=== PATIENT | male | born 1945 | race Caucasian/White ===

== ENCOUNTER 2017-02-06 04:58 | Inpatient (IN) ==
[2017-02-06] MEDS ORDERED: ASPIRIN 325 MG TABLET PO STA (05:24)
[2017-02-06] MEDS ORDERED: ONDANSETRON 4 MG/2 ML VIAL IV STA (05:24)
[2017-02-06] MEDS ORDERED: MORPHINE 2 MG/1 ML SYRINGE IV STA (05:24)
[2017-02-06] MEDS ORDERED: ASPIRIN 325 MG TABLET ONE (05:39)
[2017-02-06] MEDS ORDERED: MORPHINE 2 MG/1 ML SYRINGE ONE (05:39)
[2017-02-06] MEDS ORDERED: ONDANSETRON 4 MG/2 ML VIAL ONE (05:39)
[2017-02-06 06:23] LABS: Basophils # 0.1 10*3/uL (0.0-0.2); Basophils % 0.7 % (0.0-0.8); Eosinophils # 0.2 10*3/uL (0.0-0.87); Eosinophils % 3.1 % (0.00-10.9); Hematocrit 42.8 VOL% (42.0-52.0); Hemoglobin 15.4 GM/DL (14.0-18.0); Immature Granulocytes % 0.6 %; Immature Granulocytes Absolute 0.04 #; Lymphocytes # 2.2 10*3/uL (1.4-4.0); Lymphocytes % 31.7 % (21.2-54.2); Mean Corpuscular Hemoglobin 34 PG (27-34); Mean Corpuscular Volume 94.5 FL (87-102); Mean Platelet Volume 11.4 FL (9.6-12.0); Monocytes # 0.7 10*3/uL (0.11-0.8); Monocytes % 10.2 % (1.7-12.7); Neutrophils # 3.7 10*3/uL (1.4-7.4); Neutrophils % 53.7 % (38.7-73.9); Platelet Count 121 T/CUMM (130-400); Red Blood Count 4.53 MC/CUMM (3.8-5.5); Red Cell Distribution Width 12.2 % (9.3-17.3); White Blood Count 6.8 T/CUMM (4-12)
[2017-02-06 06:29] LABS: Albumin 3.6 G/DL (3.4-5.0); Bilirubin,Total 0.5 MG/DL (0.2-1.0); Calcium 8.8 MG/DL (8.5-10.1); Magnesium 1.8 MG/DL (1.8-2.4); Osmolality,Calculated 278.5 MOS/KG (273-304); Potassium 4.2 MMOL/L (3.5-5.1); Total Protein 6.3 G/DL (6.4-8.3)
[2017-02-06] MEDS ORDERED: NITROGLYCERIN SL 0.4 MG TABLET SL PRN (06:42)
[2017-02-06] MEDS ORDERED: NITROGLYCERIN SL 0.4 MG TABLET SL ONE ×2 (06:53→07:05)
[2017-02-06] MEDS ORDERED: ALUM/MAG/SIMETH/LIDO VISC 1:1 30 ML BOTTLE PO STA (07:38)
[2017-02-06] MEDS ORDERED: ALUM/MAG/SIMETH/LIDO VISC 1:1 30 ML BOTTLE PO ONE (07:42)
[2017-02-06] MEDS ORDERED: ACETAMINOPHEN 325 MG TABLET PO PRN (08:37)
[2017-02-06] MEDS ORDERED: ZALEPLON 5 MG CAPSULE PO PRN (08:37)
[2017-02-06 09:05] LABS: Risk Ratio 6.3; VLDL CHOLESTEROL 47.6 MG/DL
[2017-02-06] MEDS: ASPIRIN EC 81 MG TABLET PO SCH (09:15)
[2017-02-06] MEDS: LOSARTAN 50 MG TABLET PO SCH (12:40)
[2017-02-06] MEDS ORDERED: MULTIVITAMIN (CENTRUM) TABLET PO SCH (21:00)
[2017-02-06] MEDS: KETOROLAC 30 MG/1 ML VIAL IV SCH (21:34)
[2017-02-06] MEDS: OMEGA 3 ACID ETHYL ESTERS 1 GM CAPSULE PO SCH (21:34)
[2017-02-06] MEDS: METOPROLOL TARTRATE 50 MG TABLET PO SCH (21:34)
[2017-02-07] MEDS: KETOROLAC 30 MG/1 ML VIAL IV SCH ×3 (01:04→13:56)
[2017-02-07] MEDS ORDERED: ALLOPURINOL 100 MG TABLET PO SCH (09:00)
[2017-02-07] MEDS: ASPIRIN EC 81 MG TABLET PO SCH (09:17)
[2017-02-07] MEDS: OMEGA 3 ACID ETHYL ESTERS 1 GM CAPSULE PO SCH (09:18)
[2017-02-07] MEDS: METOPROLOL TARTRATE 50 MG TABLET PO SCH (09:18)
[2017-02-07 13:12] VITALS: BP 134/62
[2017-02-07] MEDS: LOSARTAN 50 MG TABLET PO SCH (13:26)
[2017-02-07] MEDS ORDERED: KETOROLAC 10 MG TABLET PO SCH (18:00)
== END 2017-02-07 14:00 | disposition home or self-care (01) | DRG 313 ==
LOC: N.ED 04:58 → N.EDINP 08:35 → N.TELEN 15:10
PROVIDERS: ADMIT Hospitalist; ATTEND Hospitalist

== ENCOUNTER 2017-02-10 15:19 | Observation (INO) ==
[2017-02-10] MEDS ORDERED: NITROGLYCERIN 2% OINT 1 INCH/GM PACK TOP STA (15:43)
[2017-02-10] MEDS ORDERED: ENOXAPARIN 100 MG/ML SYRINGE SUBCUT STA (15:43)
[2017-02-10 15:49] LABS: Basophils % 0.4 % (0.0-0.8); Eosinophils # 0.2 10*3/uL (0.0-0.87); Eosinophils % 2.8 % (0.00-10.9); Hematocrit 40.2 VOL% (42.0-52.0); Hemoglobin 14.4 GM/DL (14.0-18.0); Immature Granulocytes % 0.1 %; Immature Granulocytes Absolute 0.01 #; Lymphocytes # 2.1 10*3/uL (1.4-4.0); Lymphocytes % 31.9 % (21.2-54.2); Mean Corpuscular HGB Conc 35.8 GM/DL (32-36); Mean Corpuscular Hemoglobin 34 PG (27-34); Mean Corpuscular Volume 94.6 FL (87-102); Monocytes # 0.6 10*3/uL (0.11-0.8); Monocytes % 9.4 % (1.7-12.7); Neutrophils # 3.7 10*3/uL (1.4-7.4); Neutrophils % 55.4 % (38.7-73.9); Platelet Count 118 T/CUMM (130-400); Red Blood Count 4.25 MC/CUMM (3.8-5.5); Red Cell Distribution Width 12.1 % (9.3-17.3); White Blood Count 6.7 T/CUMM (4-12)
[2017-02-10] MEDS ORDERED: ENOXAPARIN 100 MG/ML SYRINGE SUBCUT ONE (15:49)
[2017-02-10] MEDS ORDERED: NITROGLYCERIN 2% OINT 1 INCH/GM PACK TOP ONE (15:49)
[2017-02-10 16:21] LABS: Albumin 3.7 G/DL (3.4-5.0); Bilirubin,Total 0.6 MG/DL (0.2-1.0); Calcium 8.8 MG/DL (8.5-10.1); Magnesium 1.9 MG/DL (1.8-2.4); Osmolality,Calculated 278.5 MOS/KG (273-304); Total Protein 6.5 G/DL (6.4-8.3)
[2017-02-10] MEDS ORDERED: ASPIRIN CHEW 81 MG TABLET PO STA (17:26)
[2017-02-10] MEDS ORDERED: POTASSIUM CHLORIDE RIDER 10 MEQ in PREMIX 1 EACH IV PRN ×2 (17:28→21:08)
[2017-02-10] MEDS ORDERED: MAGNESIUM SULF RIDER 2 GM in PREMIX 1 EACH IV PRN ×2 (17:28→19:49)
[2017-02-10] MEDS ORDERED: BISACODYL 5 MG TABLET PO PRN (17:48)
[2017-02-10] MEDS ORDERED: ACETAMINOPHEN 325 MG TABLET PO PRN (17:48)
[2017-02-10] MEDS ORDERED: ONDANSETRON 4 MG/2 ML VIAL IV PRN (17:48)
[2017-02-10] MEDS ORDERED: ZALEPLON 5 MG CAPSULE PO PRN ×2 (17:48→19:49)
[2017-02-10] MEDS ORDERED: guaiFENesin/DM ER 600-30 MG TABLET PO PRN (17:48)
[2017-02-10] MEDS ORDERED: ASPIRIN 325 MG TABLET ONE (18:25)
[2017-02-10 18:29] LABS: INR 0.9; Partial Thromboplastin Time 31.6 SECS (0-40)
[2017-02-10 18:59] LABS: Troponin I Only < 0.015 NG/ML (0.00-0.045)
[2017-02-10] MEDS ORDERED: DOCUSATE SODIUM 100 MG CAPSULE PO PRN (19:49)
[2017-02-10] MEDS ORDERED: NITROGLYCERIN 2% OINT 1 INCH/GM PACK TOP SCH (19:49)
[2017-02-10] MEDS ORDERED: MAGNESIUM SULF RIDER 4 GM in PREMIX 1 EACH IV PRN (19:49)
[2017-02-10] MEDS ORDERED: NITROGLYCERIN SL 0.4 MG TABLET SL PRN (19:49)
[2017-02-10 20:58] LABS: Troponin I Only < 0.015 NG/ML (0.00-0.045)
[2017-02-10] MEDS ORDERED: ATORVASTATIN 40 MG TABLET PO SCH (21:00)
[2017-02-10] MEDS ORDERED: MULTIVITAMIN (CENTRUM) TABLET PO SCH (21:00)
[2017-02-10] MEDS ORDERED: METOPROLOL TARTRATE 25 MG TABLET PO SCH (21:00)
[2017-02-10] MEDS: NITROGLYCERIN 2% OINT 1 INCH/GM PACK TOP SCH (22:03)
[2017-02-10] MEDS: METOPROLOL TARTRATE 50 MG TABLET PO SCH (22:43)
[2017-02-10] MEDS: predniSONE 20 MG TABLET PO SCH (22:44)
[2017-02-10] MEDS: OMEGA 3 ACID ETHYL ESTERS 1 GM CAPSULE PO SCH ×2 (22:44→22:45)
[2017-02-10] MEDS: diphenhydrAMINE CAP 25 MG CAPSULE PO SCH (22:45)
[2017-02-10] MEDS: SODIUM CHLORIDE 0.45% 1,000 ML IV SCH (22:46)
[2017-02-10] MEDS: FAMOTIDINE 20 MG TABLET PO SCH (23:52)
[2017-02-11] MEDS: NITROGLYCERIN 2% OINT 1 INCH/GM PACK TOP SCH ×2 (01:19→07:03)
[2017-02-11] MEDS: diphenhydrAMINE CAP 25 MG CAPSULE PO SCH ×3 (02:08→12:50)
[2017-02-11] MEDS ORDERED: ENOXAPARIN 100 MG/ML SYRINGE SUBCUT SCH (04:00)
[2017-02-11] MEDS ORDERED: diphenhydrAMINE CAP 25 MG CAPSULE PO ONE (06:00)
[2017-02-11] MEDS ORDERED: DIAZEPAM 5 MG TABLET PO ONE (06:00)
[2017-02-11 06:27] LABS: Risk Ratio 6.16; VLDL CHOLESTEROL 53.2 MG/DL
[2017-02-11 06:37] LABS: Magnesium 1.9 MG/DL (1.8-2.4); Osmolality,Calculated 279.5 MOS/KG (273-304); Potassium 5.5 MMOL/L (3.5-5.1)
[2017-02-11 06:50] LABS: Basophils % 0.5 % (0.0-0.8); Eosinophils % 0.7 % (0.00-10.9); Hematocrit 47.9 VOL% (42.0-52.0); Hemoglobin 16.7 GM/DL (14.0-18.0); Immature Granulocytes % 0.7 %; Immature Granulocytes Absolute 0.04 #; Lymphocytes # 1.6 10*3/uL (1.4-4.0); Lymphocytes % 26.4 % (21.2-54.2); Mean Corpuscular HGB Conc 34.9 GM/DL (32-36); Mean Corpuscular Hemoglobin 34 PG (27-34); Mean Corpuscular Volume 97.8 FL (87-102); Monocytes # 0.3 10*3/uL (0.11-0.8); Monocytes % 4.8 % (1.7-12.7); Neutrophils # 4.1 10*3/uL (1.4-7.4); Neutrophils % 66.9 % (38.7-73.9); Platelet Count 96 T/CUMM (130-400); Red Cell Distribution Width 12.1 % (9.3-17.3); White Blood Count 6.1 T/CUMM (4-12)
[2017-02-11] MEDS: SODIUM CHLORIDE 0.45% 1,000 ML IV SCH ×2 (07:03→12:54)
[2017-02-11 07:05] LABS: Giant Platelets Few; Platelet Estimate Decreased
[2017-02-11] MEDS ORDERED: ASPIRIN EC 325 MG TABLET PO SCH (09:00)
[2017-02-11] MEDS ORDERED: PANTOPRAZOLE 40 MG TABLET PO SCH (09:00)
[2017-02-11] MEDS ORDERED: ALLOPURINOL 100 MG TABLET PO SCH ×2 (09:00)
[2017-02-11] MEDS ORDERED: LOSARTAN 50 MG TABLET PO SCH ×2 (09:00→12:00)
[2017-02-11] MEDS ORDERED: ASPIRIN EC 81 MG TABLET PO SCH (09:00)
[2017-02-11] MEDS: FAMOTIDINE 20 MG TABLET PO SCH (09:10)
[2017-02-11] MEDS: predniSONE 20 MG TABLET PO SCH (09:10)
[2017-02-11] MEDS: METOPROLOL TARTRATE 50 MG TABLET PO SCH (09:11)
[2017-02-11] MEDS ORDERED: HEPARIN/NACL 0.9% 2 UNITS/ML 2,000 ML IV ONE (09:51)
[2017-02-11] MEDS ORDERED: MIDAZOLAM 2 MG/2 ML VIAL ONE (09:51)
[2017-02-11] MEDS ORDERED: fentaNYL 100 MCG/2 ML VIAL ONE (09:52)
[2017-02-11] MEDS ORDERED: LIDOCAINE 1%/EPI INJ 20 ML VIAL ONE (09:53)
[2017-02-11] MEDS: OMEGA 3 ACID ETHYL ESTERS 1 GM CAPSULE PO SCH (14:50)
[2017-02-11 16:20] VITALS: BP 154/72
== END 2017-02-11 16:44 | disposition home or self-care (01) ==
LOC: N.EDINP 15:19 → N.ED 15:19 → N.TELES 19:06
PROVIDERS: ADMIT Internal Medicine Cardiovascular Disease; ATTEND Internal Medicine Cardiovascular Disease
PROC: CLCCHCL (ICD-10-PCS; 2017-02-11 10:15)

== ENCOUNTER 2018-05-16 23:04 | Observation (INO) ==
[2018-05-16 23:31] LABS: Basophils # 0.1 10*3/uL (0.0-0.2); Basophils % 0.7 % (0.0-0.8); Eosinophils # 0.2 10*3/uL (0.0-0.87); Eosinophils % 2.4 % (0.00-10.9); Hematocrit 39.7 VOL% (42.0-52.0); Hemoglobin 13.5 GM/DL (14.0-18.0); Immature Granulocytes % 0.3 %; Immature Granulocytes Absolute 0.02 #; Lymphocytes # 2.7 10*3/uL (1.4-4.0); Lymphocytes % 35.4 % (21.2-54.2); Mean Corpuscular Hemoglobin 33 PG (27-34); Mean Corpuscular Volume 97.5 FL (87-102); Mean Platelet Volume 10.5 FL (9.6-12.0); Monocytes # 0.7 10*3/uL (0.11-0.8); Monocytes % 8.9 % (1.7-12.7); Neutrophils % 52.3 % (38.7-73.9); Platelet Count 163 T/CUMM (130-400); Red Blood Count 4.07 MC/CUMM (3.8-5.5); Red Cell Distribution Width 12.4 % (9.3-17.3); White Blood Count 7.6 T/CUMM (4-12)
[2018-05-16 23:43] LABS: INR 0.9; Partial Thromboplastin Time 28.7 SECS (0-40)
[2018-05-17] MEDS ORDERED: FAMOTIDINE 20 MG/2 ML VIAL IV STA (00:20)
[2018-05-17] MEDS ORDERED: NITROGLYCERIN SL 0.4 MG TABLET SL PRN (00:20)
[2018-05-17] MEDS ORDERED: ASPIRIN CHEW 81 MG TABLET PO STA (00:21)
[2018-05-17 00:31] LABS: Albumin 3.9 G/DL (3.4-5.0); Bilirubin,Total 0.6 MG/DL (0.2-1.0); Calcium 8.9 MG/DL (8.5-10.1); Osmolality,Calculated 286.1 MOS/KG (273-304); Potassium 4.1 MMOL/L (3.5-5.1); Total Protein 6.7 G/DL (6.4-8.3)
[2018-05-17] MEDS ORDERED: MORPHINE 4 MG/1 ML VIAL IV STA (01:05)
[2018-05-17] MEDS ORDERED: ONDANSETRON 4 MG/2 ML VIAL IV ONE (01:05)
[2018-05-17] MEDS ORDERED: MAGNESIUM SULF RIDER 2 GM in PREMIX 1 EACH IV PRN ×3 (01:24→10:28)
[2018-05-17] MEDS ORDERED: MAGNESIUM SULF RIDER 4 GM in PREMIX 1 EACH IV PRN ×3 (01:24→10:28)
[2018-05-17] MEDS ORDERED: DOCUSATE SODIUM 100 MG CAPSULE PO PRN (02:19)
[2018-05-17] MEDS ORDERED: MORPHINE 4 MG/1 ML VIAL IV PRN (02:19)
[2018-05-17] MEDS ORDERED: ONDANSETRON 4 MG/2 ML VIAL IV PRN (02:19)
[2018-05-17] MEDS ORDERED: ACETAMINOPHEN 325 MG TABLET PO PRN (02:19)
[2018-05-17 07:06] LABS: Risk Ratio 3.35; VLDL CHOLESTEROL 39.2 MG/DL
[2018-05-17] MEDS: PANTOPRAZOLE 40 MG TABLET PO SCH (08:36)
[2018-05-17] MEDS ORDERED: ENOXAPARIN 40 MG/0.4 ML SYRINGE SUBCUT SCH (09:00)
[2018-05-17] MEDS: LOSARTAN 50 MG TABLET PO SCH (13:56)
[2018-05-17] MEDS ORDERED: ATORVASTATIN 40 MG TABLET PO SCH (21:00)
[2018-05-17] MEDS: OMEGA 3 ACID ETHYL ESTERS 1 GM CAPSULE PO SCH (21:17)
[2018-05-18 04:40] LABS: Basophils % 0.5 % (0.0-0.8); Eosinophils # 0.2 10*3/uL (0.0-0.87); Eosinophils % 2.5 % (0.00-10.9); Hematocrit 40.2 VOL% (42.0-52.0); Hemoglobin 13.9 GM/DL (14.0-18.0); Immature Granulocytes % 0.4 %; Immature Granulocytes Absolute 0.03 #; Lymphocytes # 2.1 10*3/uL (1.4-4.0); Mean Corpuscular HGB Conc 34.6 GM/DL (32-36); Mean Corpuscular Hemoglobin 33 PG (27-34); Mean Corpuscular Volume 96.2 FL (87-102); Mean Platelet Volume 10.9 FL (9.6-12.0); Monocytes # 0.6 10*3/uL (0.11-0.8); Monocytes % 8.2 % (1.7-12.7); Neutrophils # 4.6 10*3/uL (1.4-7.4); Neutrophils % 60.4 % (38.7-73.9); Platelet Count 152 T/CUMM (130-400); Red Blood Count 4.18 MC/CUMM (3.8-5.5); Red Cell Distribution Width 12.3 % (9.3-17.3); White Blood Count 7.6 T/CUMM (4-12)
[2018-05-18 05:13] LABS: Calcium 8.6 MG/DL (8.5-10.1); Osmolality,Calculated 281.4 MOS/KG (273-304); Potassium 3.7 MMOL/L (3.5-5.1)
[2018-05-18] MEDS ORDERED: ASPIRIN EC 81 MG TABLET PO SCH (09:00)
[2018-05-18] MEDS ORDERED: ALLOPURINOL 100 MG TABLET PO SCH (09:00)
[2018-05-18] MEDS ORDERED: LIDOCAINE 2% 5 ML VIAL ONE (12:07)
[2018-05-18] MEDS ORDERED: PROPOFOL 200 MG/20 ML VIAL IV ONE (12:07)
[2018-05-18] MEDS: PANTOPRAZOLE 40 MG TABLET PO SCH (13:36)
[2018-05-18] MEDS: LOSARTAN 50 MG TABLET PO SCH (13:36)
[2018-05-18] MEDS: OMEGA 3 ACID ETHYL ESTERS 1 GM CAPSULE PO SCH (13:36)
[2018-05-18 13:59] VITALS: BP 127/63
== END 2018-05-18 15:40 | disposition home or self-care (01) ==
LOC: N.ED 23:04 → N.EDINP 23:04 → SUATTDRO 05-17 02:08 → N.EDINP 05-17 03:20 → N.4E 05-17 04:14
PROVIDERS: ADMIT Internal Medicine; ATTEND Internal Medicine

== ENCOUNTER 2020-05-23 07:19 | Observation (INO) ==
[2020-05-23 07:46] LABS: Basophils # 0.1 10*3/uL (0.0-0.2); Basophils % 0.8 % (0.0-0.8); Eosinophils # 0.1 10*3/uL (0.0-0.87); Eosinophils % 1.7 % (0.00-10.9); Hematocrit 43.5 VOL% (42.0-52.0); Hemoglobin 14.9 GM/DL (14.0-18.0); Immature Granulocytes % 0.5 %; Immature Granulocytes Absolute 0.03 #; Lymphocytes # 1.6 10*3/uL (1.4-4.0); Lymphocytes % 24.6 % (21.2-54.2); Mean Corpuscular HGB Conc 34.3 GM/DL (32-36); Mean Corpuscular Volume 97.8 FL (87-102); Mean Platelet Volume 10.3 FL (9.6-12.0); Monocytes % 8.5 % (1.7-12.7); Neutrophils % 63.9 % (38.7-73.9); Platelet Count 142 T/CUMM (130-400); Red Blood Count 4.45 MC/CUMM (3.8-5.5); Red Cell Distribution Width 12.4 % (9.3-17.3); White Blood Count 6.6 T/CUMM (4-12)
[2020-05-23 07:56] LABS: PT Patient Result 10.5 SECS (9.8-11.9); Partial Thromboplastin Time 26.2 SECS (23.9-33.8)
[2020-05-23] MEDS ORDERED: ONDANSETRON 4 MG/2 ML VIAL IV STA (07:58)
[2020-05-23] MEDS ORDERED: ASPIRIN 325 MG TABLET PO STA (07:58)
[2020-05-23] MEDS ORDERED: MORPHINE 4 MG/1 ML VIAL IV STA (07:58)
[2020-05-23] MEDS ORDERED: ALUM/MAG/SIMETH/LIDO VISC 1:1 30 ML BOTTLE PO STA (07:58)
[2020-05-23] MEDS ORDERED: NITROGLYCERIN 2% OINT 1 INCH/GM PACK TOP STA (07:58)
[2020-05-23 08:06] LABS: Albumin 3.8 G/DL (3.4-5.0); Bilirubin,Total 0.6 MG/DL (0.2-1.0); Calcium 9.1 MG/DL (8.5-10.1); Osmolality,Calculated 280.4 MOS/KG (273-304); Potassium 4.4 MMOL/L (3.5-5.1); Total Protein 6.9 G/DL (5.0-7.5)
[2020-05-23 08:44] LABS: Bilirubin,Urine Negative (Negative); Blood, Urine Negative (Negative); Glucose,Urine (UA) Negative (Negative); Ketones,Urine Negative (Negative); Mucus,Urine Occasional /LPF (Occasional); Nitrite,Urine Negative (Negative); Protein,Urine 30 MG/DL; RBC,Urine 1 /HPF (0-4); Urine Appearance CLEAR (Clear); Urine Color Yellow (Yellow); Urine Specific Gravity 1.013 (1.001-1.035); Urine Urobilinogen < 2.0 EU/DL (0.2-1.0); WBC,Urine <1 /HPF (0-6)
[2020-05-23 08:51] LABS: Barbiturates Screen,Urine Negative (Negative); Benzodiazepines Screen,Urine Negative (Negative); Cannabinoid Screen,Urine Negative (Negative); Opiate Screen,Urine Negative (Negative); Phencyclidine Screen,Urine Negative (Negative)
[2020-05-23] MEDS ORDERED: DEXTROSE 50% 25 GM/50 ML VIAL IV PRN (10:16)
[2020-05-23] MEDS ORDERED: GLUCAGON 1 MG VIAL IM PRN (10:16)
[2020-05-23] MEDS ORDERED: ZALEPLON 5 MG CAPSULE PO PRN (10:16)
[2020-05-23] MEDS ORDERED: ACETAMINOPHEN 325 MG TABLET PO PRN (10:16)
[2020-05-23] MEDS ORDERED: ONDANSETRON 4 MG/2 ML VIAL IV PRN (10:16)
[2020-05-23] MEDS ORDERED: SODIUM CHLORIDE 0.9% 1,000 ML IV SCH (10:30)
[2020-05-23] MEDS ORDERED: hydrALAZINE 20 MG/1 ML VIAL IV PRN (10:30)
[2020-05-23] MEDS: ENOXAPARIN 40 MG/0.4 ML SYRINGE SUBCUT SCH (12:01)
[2020-05-23] MEDS: INSULIN LISPRO 100 UNIT/ML SUBCUT SCH ×3 (12:01→20:26)
[2020-05-23] MEDS: PANTOPRAZOLE 40 MG TABLET PO SCH (12:01)
[2020-05-23] MEDS: DOXAZOSIN 1 MG TABLET PO SCH (20:39)
[2020-05-23] MEDS ORDERED: amLODIPine 5 MG TABLET PO SCH (21:00)
[2020-05-23] MEDS ORDERED: ATORVASTATIN 40 MG TABLET PO SCH (21:00)
[2020-05-23] MEDS ORDERED: amLODIPine 10 MG TABLET PO SCH (21:00)
[2020-05-24 06:55] LABS: Calcium 8.9 MG/DL (8.5-10.1); Osmolality,Calculated 278.5 MOS/KG (273-304); Potassium 3.6 MMOL/L (3.5-5.1); Risk Ratio 4.09; VLDL CHOLESTEROL 40.4 MG/DL
[2020-05-24] MEDS ORDERED: MAGNESIUM SULF RIDER 2 GM in PREMIX 1 EACH IV PRN (07:19)
[2020-05-24] MEDS ORDERED: MAGNESIUM SULF RIDER 4 GM in PREMIX 1 EACH IV PRN (07:19)
[2020-05-24] MEDS: INSULIN LISPRO 100 UNIT/ML SUBCUT SCH ×2 (07:50→11:35)
[2020-05-24] MEDS ORDERED: METOPROLOL SUCCINATE XL 50 MG TABLET PO SCH (09:00)
[2020-05-24] MEDS ORDERED: LOSARTAN 50 MG TABLET PO SCH (09:00)
[2020-05-24] MEDS ORDERED: ASPIRIN EC 81 MG TABLET PO SCH (09:00)
[2020-05-24] MEDS: ENOXAPARIN 40 MG/0.4 ML SYRINGE SUBCUT SCH (09:35)
[2020-05-24] MEDS: DOXAZOSIN 1 MG TABLET PO SCH (09:35)
[2020-05-24] MEDS: PANTOPRAZOLE 40 MG TABLET PO SCH (09:36)
[2020-05-24 12:24] VITALS: BP 140/93
== END 2020-05-24 12:20 | disposition home or self-care (01) ==
LOC: N.ED 07:19 → N.EDINP 07:19 → N.TELES 11:03
PROVIDERS: ADMIT Internal Medicine; ATTEND Internal Medicine

== ENCOUNTER 2020-12-20 03:59 | Observation (INO) ==
[2020-12-20] MEDS ORDERED: ONDANSETRON 4 MG/2 ML VIAL IV STA (04:20)
[2020-12-20] MEDS ORDERED: ASPIRIN 325 MG TABLET PO STA (04:20)
[2020-12-20] MEDS ORDERED: NITROGLYCERIN SL 0.4 MG TABLET SL PRN (04:20)
[2020-12-20 04:52] LABS: Basophils % 0.8 % (0.0-0.8); Eosinophils # 0.2 10*3/uL (0.0-0.87); Eosinophils % 4.3 % (0.00-10.9); Hematocrit 41.5 VOL% (42.0-52.0); Hemoglobin 14.5 GM/DL (14.0-18.0); Immature Granulocytes % 0.4 %; Immature Granulocytes Absolute 0.02 #; Lymphocytes # 1.6 10*3/uL (1.4-4.0); Lymphocytes % 29.9 % (21.2-54.2); Mean Corpuscular HGB Conc 34.9 GM/DL (32-36); Mean Corpuscular Volume 94.1 FL (87-102); Mean Platelet Volume 10.7 FL (9.6-12.0); Monocytes % 8.9 % (1.7-12.7); Neutrophils % 55.7 % (38.7-73.9); Platelet Count 137 T/CUMM (130-400); Red Blood Count 4.41 MC/CUMM (3.8-5.5); Red Cell Distribution Width 13.2 % (9.3-17.3); White Blood Count 5.3 T/CUMM (4-12)
[2020-12-20 04:59] LABS: PT Patient Result 10.7 SECS (10.5-12.0)
[2020-12-20 05:35] LABS: Albumin 3.2 G/DL (3.4-5.0); Bilirubin,Total 0.8 MG/DL (0.20-1.00); Calcium 8.6 MG/DL (8.5-10.1); Potassium 4.1 MMOL/L (3.5-5.1); Total Protein 6.5 G/DL (6.4-8.2)
[2020-12-20] MEDS ORDERED: DEXTROSE 50% 25 GM/50 ML VIAL IV PRN (05:56)
[2020-12-20] MEDS ORDERED: MORPHINE 2 MG/1 ML SYRINGE IV PRN (05:56)
[2020-12-20] MEDS ORDERED: ACETAMINOPHEN 325 MG TABLET PO PRN (05:56)
[2020-12-20] MEDS ORDERED: GLUCAGON 1 MG VIAL IM PRN (05:56)
[2020-12-20] MEDS ORDERED: ONDANSETRON 4 MG/2 ML VIAL IV PRN (05:56)
[2020-12-20] MEDS ORDERED: hydrALAZINE 20 MG/1 ML VIAL IV PRN (06:09)
[2020-12-20 06:37] LABS: Risk Ratio 2.74
[2020-12-20] MEDS ORDERED: ASPIRIN EC 81 MG TABLET PO SCH (09:00)
[2020-12-20] MEDS ORDERED: ERYTHROMYCIN 0.5% OPHT OINT 1 GM TUBE BOTH EYES SCH (09:00)
[2020-12-20] MEDS ORDERED: DOXAZOSIN 1 MG TABLET PO SCH (09:00)
[2020-12-20] MEDS ORDERED: ENOXAPARIN 40 MG/0.4 ML SYRINGE SUBCUT SCH (09:00)
[2020-12-20] MEDS ORDERED: LIDOCAINE 5% PATCH TRANSDERM SCH (09:00)
[2020-12-20] MEDS ORDERED: PANTOPRAZOLE 40 MG TABLET PO SCH (09:00)
[2020-12-20] MEDS ORDERED: cycloSPORINE OPH EMUL 1 VIAL BOTH EYES SCH (09:00)
[2020-12-20] MEDS ORDERED: MEMANTINE 10 MG TABLET PO SCH (09:00)
[2020-12-20 09:08] VITALS: BP 152/74
[2020-12-20] MEDS ORDERED: ERYTHROMYCIN 0.5% OPHT OINT 3.5 GM TUBE BOTH EYES SCH (10:00)
[2020-12-20] MEDS ORDERED: ALUM/MAG/SIMETH/LIDO VISC 1:1 30 ML BOTTLE PO ONE (10:37)
[2020-12-20] MEDS ORDERED: amLODIPine 5 MG TABLET PO ONE (11:42)
[2020-12-20] MEDS: INSULIN REGULAR 100 UNIT/ML SUBCUT SCH ×2 (14:15→14:50)
[2020-12-20] MEDS ORDERED: amLODIPine 10 MG TABLET PO SCH (19:00)
[2020-12-20] MEDS ORDERED: ATORVASTATIN 40 MG TABLET PO SCH (21:00)
[2020-12-20] MEDS ORDERED: amLODIPine 5 MG TABLET PO SCH (21:00)
== END 2020-12-20 15:22 | disposition designated cancer center or children's hospital (05) ==
LOC: SUATTDRO → N.ED 03:59 → N.EDINP 03:59 → N.TELEN 08:35
PROVIDERS: ADMIT Internal Medicine; ATTEND Internal Medicine